=== PATIENT | female | born 1955 | race Caucasian/White ===

== ENCOUNTER → 2022-06-14 15:56 | Outpatient (CLI) | payer MEDICARE, SELFPAY ==
--- NOTE | ~2022-06-14 | XR_ITS ---
EXAM: XR knee RT min 4V, XR ankle RT min 3V, XR tibia fibula RT 2V DATE: 06/14/2022 16:40 HISTORY: M25.561 - Pain in right knee . COMPARISON: None available. FINDINGS: Decreased mineralization. No fracture or dislocation. No lytic or blastic lesion. Mild tri compartmental right knee osteoarthritis. Small right knee joint effusion. Oblique fracture of the dis jem right fibula extending to the joint line, with 4 mm lateral displacement. Mild medial joint space widening. Small ankle joint effusion. No erosion or periosteal change. Soft tissue swelling about th e ankle. IMPRESSION: Oblique distal right fibular fracture with mild lateral displacement (Talley B type fractu re). Mild medial ankle joint space widening may reflect medial ankle ligamentous injury. Reviewed, dictated and finalized at [facility]. IMPRESSION: Oblique distal right fibular fracture with mild lateral displacemen t (Talley B type fracture). Mild medial ankle joint space widening may reflect m edial ankle ligamentous injury. IMPRESSION: Oblique distal right fibular fracture with mild lateral displacemen t (Talley B type fracture). Mild medial ankle joint space widening may reflect m edial ankle ligamentous injury.
== END ==
PROVIDERS: PCP Family Medicine; Visit Provider Physician Assistant
DX: S82.831A Other fracture of upper and lower end of right fibula, initial encounter for closed fracture (principal); X58.XXXA Exposure to other specified factors, initial encounter
CPT/HCPCS: 73564; 73590; 73610

== ENCOUNTER 2022-09-07 14:00 | Outpatient (RCR) | payer MEDICARE, SELFPAY ==
--- NOTE | 2022-08-22 11:48 | PCPTNOTE ---
Patient called & cancelled scheduled appointment this date due to having another appointment scheduled.
--- NOTE | 2022-08-29 15:40 | PTOPEVAL1 ---
Assessment and note entered by Erasto Covarrubias, PT, DPT Evaluation Information Assessment Status Evaluation Diagnosis R ankle sprain Onset 05/01/22 Subjective Information Pt states in April she tripped and fell over her dog. She states she waited 3 weeks prior to going to the doctor. She was placed in a walking boot for 6 weeks d/t a fibular fracture. She states the pain was excruciating after talking the boot off. She states she can stand or walk no longer than 30 mins prior to needing to sit. She has been without the boot for 3 weeks. Reported Pain Level Pain Score 3: Self Report Assessment PT Clinical Summary Bernice presents to therapy today for her initial evaluation with a diagnosis of a R ankle sprain. Today she demonstrates active and passive ankle ROM this is functional but mildly decreased from her uninvolved side. She demonstrates decreased ankle strength on the R and moderate gait deviations. She currently ambulates with mahesh ext rot and an antalgic gait. She reports stairs are really difficultly and she would like to get back to walking on the treadmill daily for exercise. Skilled physical therapy services are indicated to address the deficits noted above, to improve strength, to minimize impairment, and to return to baseline function. Plan of Care Interventions Electrical Stimulation,Gait Training,Manual Therapy,Neuro Re-education,Patient/Caregiver Educati,Therapeutic Activities,Therapeutic Exercise,Ultrasound PT Services Indicated Yes Treatment Frequency and 1x/ wk for 6 wks Duration These treatments will address the objective and functional deficits as defined above. The patient will be advanced safely and appropriately in order for the patient to progress towards his/her prior level of function. Additional exercises will be introduced and as well as a comprehensive home exercise program upon discharge, if needed, ?to ensure carryover of functional gains achieved in the clinic. This treatment plan has been reviewed and agreement upon by the patient.
--- NOTE | 2022-09-14 11:10 | PCPTNOTE ---
Patient called to cancel due to being sick.
--- NOTE | 2022-10-04 17:20 | PTOPDC ---
Assessment and note entered by Erasto Covarrubias, PT, DPT Evaluation Information Assessment Status Discharge - Pt Not Present Diagnosis R ankle sprain Onset 05/01/22 Subjective Information Bernice called and cancelled all of her remaining appointments this date. Per patient, she has a broken bone and was told to not do therapy from her doctor. Assessment PT Clinical Summary Bernice completed 2 visits of therapy from 08/29/22 to 09/07/22. She will be discharged at this time. If she is to return to therapy at a later date, she will need a new order. Plan of Care Treatment Frequency and to be discharged Duration
== END 2022-10-05 14:09 | disposition home or self-care (01) ==
LOC: ANHGOSHPT 14:00
PROVIDERS: PCP Family Medicine; Visit Provider Nurse Practitioner
DX: S93.401D Sprain of unspecified ligament of right ankle, subsequent encounter (principal)
CPT/HCPCS: 97110; 97116; 97140; 97161

== ENCOUNTER 2024-09-11 16:04 | Outpatient (CLI) | payer MEDICARE, SELFPAY ==
--- NOTE | ~2024-09-11 | XR_ITS ---
Right foot Technique: AP and lateral views were obtained. Clinical History: Pain Findings: No acute fracture or dislocation is seen. Osseous alignment is anatomic. There are degenera tive changes throughout the interphalangeal joints of the toes. Soft tissues are unremarkable. 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 Reviewed, dictated and finalized at location . 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
== END 2024-09-11 16:05 | disposition home or self-care (01) ==
LOC: GOSHIMG 16:07
PROVIDERS: PCP Family Medicine; Visit Provider Nurse Practitioner
DX: M19.071 Primary osteoarthritis, right ankle and foot (principal)
CPT/HCPCS: 73620

== ENCOUNTER 2025-06-12 12:30 | Outpatient (CLI) | payer MEDICARE, SELFPAY ==
[2025-06-12 19:27] LABS: Hematocrit 44.3 % (37.0-47.0); Hemoglobin 14.3 g/dL (12.0-15.0); Mean Corpuscular HGB Conc 32.3 g/dl (32-36); Mean Corpuscular Hemoglobin 30.0 pg (26-34); Mean Corpuscular Volume 92.9 fl (80-100); Platelet Count Result 210 k/mm3 (150-375); Red Blood Count 4.77 M/mm3 (4.2-5.4); White Blood Count 5.2 K/mm3 (4.5-10.0)
[2025-06-12 19:38] LABS: Alanine Aminotransferase 16 U/L (6-35); Albumin Level 4.0 g/dL (3.5-5.1); Alkaline Phosphatase 75 U/L (38-126); Anion Gap 7 mmol/L (4-12); Aspartate Amino Transferase 37 U/L (14-36); Bilirubin,Total 1.2 mg/dL (0.2-1.3); Blood Urea Nitrogen 14 mg/dL (7-17); Calcium 9.3 mg/dL (8.4-10.2); Carbon Dioxide 26 mmol/L (22-30); Chloride 106 mmol/L (98-107); Cholesterol 194 mg/dL (0-200); Estimated Glomerular Filt Rate 53; Glucose 72 mg/dL (65-110); HDL Direct 50 mg/dL; Potassium 4.6 mmol/L (3.4-5.0); Sodium 139 mmol/L (137-145); Total Protein 7.2 g/dL (6.3-8.2); Triglycerides 72 mg/dL (<150)
[2025-06-12 20:10] LABS: Thyroid Stimulating Hormone 1.770 uIU/mL (0.465-4.680)
== END 2025-06-12 12:31 | disposition home or self-care (01) ==
LOC: ANHGOSHLAB 12:31
PROVIDERS: PCP Family Medicine; Visit Provider Nurse Practitioner
DX: F32.A Depression, unspecified (principal); Z11.59 Encounter for screening for other viral diseases; Z79.899 Other long term (current) drug therapy; Z00.00 Encounter for general adult medical examination without abnormal findings
CPT/HCPCS: 36415; 80053; 80061; 84443; 85027; 86803